=== PATIENT | female | born 1970 | race Caucasian/White ===

== ENCOUNTER 2016-10-21 20:17 | Emergency (ER) | payer OTHER ==
[2016-10-21 20:55] LABS: BASO % 0.4 % (0.0-1.0); EOS # 0.1 K/mm3 (0.0-0.50); EOS % 1.8 % (0.0-3.0); LARGE UNSTAINED CELL # 0.1 K/mm3 (0.0-0.4); LARGE UNSTAINED CELL % 1.9 % (0.0-4.0); LYMPH # 1.6 K/mm3 (1.5-4.5); LYMPH % 24.7 % (24.0-44.0); MEAN CORPUSCULAR HEMOGLOBIN 30.5 pg (27.0-33.0); MEAN CORPUSCULAR HGB CONC 33.6 g/dl (32.0-36.5); MEAN CORPUSCULAR VOLUME 90.9 fl (80.0-96.0); MONO # 0.4 K/mm3 (0.0-0.8); MONO % 5.3 % (0.0-5.0); NEUTROPHILS # 4.3 K/mm3 (1.8-7.7); NEUTROPHILS % 65.9 % (36.0-66.0); PLATELET COUNT, AUTOMATED 185 k/mm3 (150-450); RED CELL DISTRIBUTION WIDTH 12.8 % (11.5-14.5); WHITE BLOOD COUNT 6.5 K/mm3 (4.0-10.0)
[2016-10-21] MEDS ORDERED: IPRATROPIUM 0.5MG/ALBUTEROL 2.5MG INH SOL UD 3ML (DUONEB)(J7620) As Ordered ONE (20:59)
[2016-10-21 21:05] LABS: VENOUS BASE EXCESS -0.8 (-2.0-2.0); VENOUS O2 SATURATION 80.2 % (60.0-80.0); VENOUS PARTIAL PRESSURE CO2 39.8 mmHg (38.0-50.0); VENOUS PARTIAL PRESSURE O2 40.8 mmHg (30.0-50.0); VENOUS STANDARD HCO3 23.4 MEQ/L; VENOUS TOTAL CO2 25.2 MEQ/L (24.0-28.0)
[2016-10-21 21:10] LABS: ANION GAP 8 MEQ/L (8-16); BLOOD UREA NITROGEN 7 MG/DL (7-18); CALCIUM LEVEL 8.6 MG/DL (8.5-10.1); CARBON DIOXIDE LEVEL 25 MEQ/L (21-32); CHLORIDE LEVEL 109 MEQ/L (98-107); CREATININE FOR GFR 0.67 MG/DL (0.55-1.02); GLOMERULAR FILTRATION RATE > 60.0 (>58); GLUCOSE, FASTING 80 MG/DL (70-105); POTASSIUM SERUM 3.4 MEQ/L (3.5-5.1); SODIUM LEVEL 142 MEQ/L (136-145)
--- NOTE | 2016-10-21 23:47 | EDDOCDS ---
Nurse's Notes [facility] Name: Rajwinder Chambers Age: 46 yrs Sex: Female : 1970 Arrival Date: 10/21/2016 Time: 20:17 Bed 1 Private MD: [facility] Diagnosis: Chronic obstructive pulmonary disease with (acute) exacerbation Presentation: 10/21 20:27 Presenting complaint: Patient states: chest pain since last weekend saw her own cz provider who put her on antibiotic and steroid for her chronic COPD. Aspirin was not taken prior to arrival. Adult Sepsis Screening: The patient does not have new or worsening altered mentation. Patient's respiratory rate is less than 22. Systolic blood pressure is greater than 100. Patient has a qSOFA score of 0- Negative Sepsis Screen. Suicide/Homicide risk assessment- the patient denies having any suicidal and/or homicidal ideations and does not present with any other emotional, behavioral or mental health complaints. Status: Patient is not a manager of creative services or dependent. Transition of care: patient was not received from another setting of care. 20:27 Acuity: MIRA Level 2 cz 20:27 Method Of Arrival: Walkin/Carried/Asstd cz Triage Assessment: 20:29 General: Appears uncomfortable. Pain: Location: chest Pain currently is 2 out of 10 on cz a pain scale. HIV screening NA for this visit Offered previously. 23:45 Cardiovascular: Chest pain is described as mild, radiates Does not radiate. episodes js15 are intermittent began. Historical: - Allergies: SULFA (SULFONAMIDES); - Home Meds: 1. Asmanex HFA 200 mcg/actuation inhalation HFAA 2 puffs 2 times per day 2. Breo Ellipta 200-25 mcg/dose inhalation dsdv 1 puff once daily 3. Striverdi Respimat 2.5 mcg/actuation inhalation mist 2 puffs once daily 4. Ventolin Rotahaler/Rotacaps 200 mcg Inhl CpDv every 6 hours 5. Augmentin 875-125 mg Oral tab every 12 hours 6. Prednisone Oral - PMHx: COPD; - PSHx: none; - Social history: Smoking status: Patient uses tobacco products, heavy tobacco smoker. No barriers to communication noted, The patient speaks fluent Comoran, Speaks appropriately for age. - Family history: Not pertinent. - : The pt / caregiver states he / she is not on anticoagulants. Home medication list is obtained from the patient. - Exposure Risk Screening:: None identified. Screenin:00 Screening information is obtained from the patient. Fall risk: No risks identified. js15 Assistance ADL's: requires no assistance with activities of daily living. Abuse/DV Screen: The patient / caregiver reports he/she is: not in a situation that causes fear, pain or injury. Nutritional screening: No deficits noted. Advance Directives: There is no active DNR order. home support is adequate. Assessment: 20:57 General: pt ambulated to bathroom, tolerated well. mlc 21:00 General: Appears in no apparent distress, comfortable, Behavior is appropriate for age, js15 cooperative. Pain: Denies pain. Neurological: Level of Consciousness is awake, alert, obeys commands, Oriented to person, place, time. Cardiovascular: Rhythm is regular. Respiratory: Airway is patent Respiratory effort is even, unlabored, Respiratory pattern is regular, symmetrical. Respiratory: Breath sounds are clear bilaterally. Derm: Skin is pink, warm & dry. 22:00 Reassessment: Patient appears in no apparent distress at this time. Pt resting on js15 stretcher, awake and alert; respirations even and unlabored; skin pink, warm, dry. 23:00 Reassessment: Patient appears in no apparent distress at this time. Patient denies pain js15 at this time. Pt resting on stretcher, awake and alert with family at bedside; respirations even and unlabored; skin pink, warm, dry. 23:44 General: Appears in no apparent distress, comfortable, Behavior is appropriate for age, js15 cooperative. Pain: Denies pain. Neurological: Level of Consciousness is awake, alert, obeys commands, Oriented to person, place, time. Respiratory: Airway is patent Respiratory effort is even, unlabored, Respiratory pattern is regular, symmetrical. Derm: Skin is pink, warm & dry. Vital Signs: 20:20 BP 104 / 72; Pulse 79; Resp 18 S; Temp 98.8(O); Pulse Ox 100% on R/A; Weight 44 kg (R); gr2 Height 5 ft. 6 in. (167.64 cm) (R); Pain 3/10; 23:41 BP 116 / 56 LA Sitting (auto/reg); Pulse 70 MON; Resp 18 S; Temp 99.6(TE); Pulse Ox 96% cln on R/A; Pain 4/10; 20:20 Body Mass Index 15.66 (44.00 kg, 167.64 cm) gr2 Vitals: 20:20 Log In Time: October 21, 2016 at 20:20. RN notified that patient meets Red Flag gr2 criteria. ED Course: 20:20 Patient visited by Rodney Culver. gr2 20:20 [facility] is Private Physician. gr2 20:20 Patient moved to Waiting gr2 20:23 Patient visited by Rodney Culver. gr2 20:23 Patient moved to Pre RCE gr2 20:27 Patient moved to 1 cz 20:28 Triage Initiated cz 20:32 Patient visited by Svitlana Srivastava PCA. sparkle 20:32 Pt greeted and oriented to ED. Patient advised of names of staff involved in care, sparkle location of call sam, wait times and NPO status. Patient has correct armband on for positive identification. Placed in gown. Bed in low position. Call light in reach. Side rails up X2. phototypesetting equipment monitor on. Pulse ox on. NIBP on. 20:32 EKG done. (by ED staff). Reviewed by Peter Eden DO. sparkle 20:33 Peter Eden DO is Attending Physician. mm11 20:33 Patient visited by Peter Eden DO. mm11 20:41 Patient visited by Lanie Amezcua RN. [facility] [place] 20:41 Inserted saline lock: 18 gauge in right antecubital area and blood collected. The [facility] [place] patient tolerated the procedure well. 20:43 Patient visited by Peter Eden DO. mm11 20:45 -Blood Culture Sent. mlc 20:45 Basic Metabolic Profile Sent. mlc 20:45 CBC with Diff Sent. mlc 20:55 BLOOD CULTURES Sent. mlc 20:55 Venous Blood Gas (large pea green tube on ice) Sent. mlc 20:57 Patient visited by Lanie Amezcua,SUGAR. mlc 21:59 Patient visited by Manuela Rader RN. js15 21:59 -Influenza A&B Rapid Antigen - Nose Sent. js15 22:00 The patient / caregiver is instructed regarding the plan of care and ED course. js15 23:13 Patient visited by Peter Eden DO. mm11 23:32 [facility] is Referral Physician. mm11 23:42 Patient visited by Vanessa Mireles PCA. cln 23:44 Discontinued IV lock intact, bleeding controlled, pressure dressing applied, No js15 redness/swelling at site. No procedures done that require assistance. Administered Medications: 20:56 Drug: Albuterol-Ipratropium 3 ml [ipratropium-albuterol 0.5 mg-3 mg(2.5 mg base)/3 mL rs5 nebulization soln (3 mL)] Route: Inhalation; 21:59 Drug: NS 0.9% 1000 ml [sodium chloride 0.9 % intravenous solution] Route: IV; Rate: js15 bolus; Site: right antecubital; 23:42 Follow up: IV Status: Completed infusion; IV Intake: 1000ml js15 Intake: 23:42 IV: 1000.00ml; Total: 1000.00ml. js15 RT: 21:04 Initial Med Neb Given as ordered Patient was instructed and evaluated on procedure rs5 Patient tolerated procedure well without adverse effect. Respiratory: Respiratory effort is even, unlabored, Respiratory pattern is regular symmetrical, Breath sounds are diminished bilaterally. Reports shortness of breath on exertion cough that is productive. Order Results: Lab Order: Basic Metabolic Profile; SPEC'M 10/21/16 20:37 Test: GLUCOSE, FASTING; Value: 80; Range: 70-105; Units: MG/DL; Status: F Test: BLOOD UREA NITROGEN; Value: 7; Range: 7-18; Units: MG/DL; Status: F Test: CREATININE FOR GFR; Value: 0.67; Range: 0.55-1.02; Units: MG/DL; Status: F Test: GLOMERULAR FILTRATION RATE; Value: > 60.0; Range: >58; Status: F Test: SODIUM LEVEL; Value: 142; Range: 136-145; Units: MEQ/L; Status: F Test: POTASSIUM SERUM; Value: 3.4; Range: 3.5-5.1; Abnormal: Below low normal; Units: MEQ/L; Status: F Test: CHLORIDE LEVEL; Value: 109; Range: 98-107; Abnormal: Above high normal; Units: MEQ/L; Status: F Test: CARBON DIOXIDE LEVEL; Value: 25; Range: 21-32; Units: MEQ/L; Status: F Test: ANION GAP; Value: 8; Range: 8-16; Units: MEQ/L; Status: F Test: CALCIUM LEVEL; Value: 8.6; Range: 8.5-10.1; Units: MG/DL; Status: F Test Note: ; Units are mL/min/1.73 m2 Chronic Kidney Disease Staging per NKF: Stage I & II GFR >=60 Normal to Mildly Decreased Stage III GFR 30-59 Moderately Decreased Stage IV GFR 15-29 Severely Decreased Stage V GFR <15 Very Little GFR Left ESRD GFR <15 on GLOVE PARTS INSPECTOR Lab Order: CBC with Diff; SPEC'M 10/21/16 20:37 Test: WHITE BLOOD COUNT; Value: 6.5; Range: 4.0-10.0; Units: K/mm3; Status: F Test: RED BLOOD COUNT; Value: 4.70; Range: 4.00-5.40; Units: M/mm3; Status: F Test: HEMOGLOBIN; Value: 14.3; Range: 12.0-16.0; Units: g/dl; Status: F Test: HEMATOCRIT; Value: 42.7; Range: 36.0-47.0; Units: %; Status: F Test: MEAN CORPUSCULAR VOLUME; Value: 90.9; Range: 80.0-96.0; Units: fl; Status: F Test: MEAN CORPUSCULAR HEMOGLOBIN; Value: 30.5; Range: 27.0-33.0; Units: pg; Status: F Test: MEAN CORPUSCULAR HGB CONC; Value: 33.6; Range: 32.0-36.5; Units: g/dl; Status: F Test: RED CELL DISTRIBUTION WIDTH; Value: 12.8; Range: 11.5-14.5; Units: %; Status: F Test: PLATELET COUNT, AUTOMATED; Value: 185; Range: 150-450; Units: k/mm3; Status: F Test: NEUTROPHILS %; Value: 65.9; Range: 36.0-66.0; Units: %; Status: F Test: LYMPH %; Value: 24.7; Range: 24.0-44.0; Units: %; Status: F Test: MONO %; Value: 5.3; Range: 0.0-5.0; Abnormal: Above high normal; Units: %; Status: F Test: EOS %; Value: 1.8; Range: 0.0-3.0; Units: %; Status: F Test: BASO %; Value: 0.4; Range: 0.0-1.0; Units: %; Status: F Test: LARGE UNSTAINED CELL %; Value: 1.9; Range: 0.0-4.0; Units: %; Status: F Test: NEUTROPHILS #; Value: 4.3; Range: 1.8-7.7; Units: K/mm3; Status: F Test: LYMPH #; Value: 1.6; Range: 1.5-4.5; Units: K/mm3; Status: F Test: MONO #; Value: 0.4; Range: 0.0-0.8; Units: K/mm3; Status: F Test: EOS #; Value: 0.1; Range: 0.0-0.50; Units: K/mm3; Status: F Test: BASO #; Value: 0.0; Range: 0.0-0.2; Units: K/mm3; Status: F Test: LARGE UNSTAINED CELL #; Value: 0.1; Range: 0.0-0.4; Units: K/mm3; Status: F Lab Order: Venous Blood Gas (large pea green tube on ice); SPEC'M 10/21/16 20:52 Test: VENOUS PH; Value: 7.397; Range: 7.330-7.430; Units: UNITS; Status: F Test: VENOUS PARTIAL PRESSURE CO2; Value: 39.8; Range: 38.0-50.0; Units: mmHg; Status: F Test: VENOUS PARTIAL PRESSURE O2; Value: 40.8; Range: 30.0-50.0; Units: mmHg; Status: F Test: VENOUS TOTAL CO2; Value: 25.2; Range: 24.0-28.0; Units: MEQ/L; Status: F Test: VENOUS HCO3; Value: 23.9; Range: 23.0-27.0; Units: MEQ/L; Status: F Test: VENOUS BASE EXCESS; Value: -0.8; Range: -2.0-2.0; Status: F Test: VENOUS STANDARD HCO3; Value: 23.4; Units: MEQ/L; Status: F Test: VENOUS O2 SATURATION; Value: 80.2; Range: 60.0-80.0; Abnormal: Above high normal; Units: %; Status: F Lab Order: -Influenza A&B Rapid Antigen - Nose; SPEC'M 10/21/16 21:56 Test: INFLUENZA A RAPID SCR by ICA; Value: INFLUENZA A RESULTS NEGATIVE; Status: F Test: INFLUENZA A RAPID SCR by ICA; Value: Comments:; Status: F Test: INFLUENZA B RAPID SCR by ICA; Value: INFLUENZA B RESULTS NEGATIVE; Status: F Test Note: ; The Influenza test is a direct rapid immunoassay for the qualitative detection of Influenza viral antigen. Cell culture (Viral Culture) testing should be considered to confirm NEGATIVE results and to assist in detecting other viruses that can provide similar clinical symptoms. Please contact the lab within 24 hours ([phone]) if confirmatory testing is desired. Outcome: 23:33 Discharge ordered by Provider. mm11 23:44 Discharge Assessment: Patient awake, alert and oriented x 3. No cognitive and/or js15 functional deficits noted. Patient verbalized understanding of disposition instructions. patient administered narcotics - no. The following High Risk Discharge criteria are identified: None. Discharged to home ambulatory. Condition: stable. Discharge instructions given to patient, Instructed on discharge instructions, follow up and referral plans. Demonstrated understanding of instructions, Pt was receptive of discharge instructions/ teaching. No special radiology studies were completed. Property sent home with patient. 23:46 Patient left the ED. js15 Signatures: Navneet Hackett, RN RN Peter Hernandez DO DO mm11 Svitlana Srivastava, SPECIAL EDUCATION CASE MANAGER SPECIAL EDUCATION CASE MANAGER sparkle Ignacio Coates,RT RT rs5 Rodney Culver gr2 Lanie Amezcua,RN RN mlc Manuela Rader,SUGAR WOOTEN js15 Vanessa Mireles, SPECIAL EDUCATION CASE MANAGER SPECIAL EDUCATION CASE MANAGER cln MTDD
--- NOTE | 2016-10-21 23:47 | EDDOCDS ---
Physician Documentation [facility] Name: Rajwinder Chambers Age: 46 yrs Sex: Female : 1970 Arrival Date: 10/21/2016 Time: 20:17 Bed 1 Private MD: [facility] Disposition: 10/21/16 23:33 Discharged to Home/Self Care. Impression: Chronic obstructive pulmonary disease with (acute) exacerbation. - Condition is Stable. - Discharge Instructions: Chronic Obstructive Pulmonary Disease. - Medication Reconciliation, Local Pharmacy Hours, Work Release Form - 2 day form. - Follow up: [facility]; When: 2 - 3 days; Reason: Continuance of care. - Problem is an acute exacerbation. - Symptoms have improved. - Notes: CONTINUE WITH ANTIBIOTICS AND STEROIDS PREVIOUSLY PRESCRIBED. RETURN TO THE ER IF SYMPTOMS WORSEN. Historical: - Allergies: SULFA (SULFONAMIDES); - Home Meds: 1. Asmanex HFA 200 mcg/actuation inhalation HFAA 2 puffs 2 times per day 2. Breo Ellipta 200-25 mcg/dose inhalation dsdv 1 puff once daily 3. Striverdi Respimat 2.5 mcg/actuation inhalation mist 2 puffs once daily 4. Ventolin Rotahaler/Rotacaps 200 mcg Inhl CpDv every 6 hours 5. Augmentin 875-125 mg Oral tab every 12 hours 6. Prednisone Oral - PMHx: COPD; - PSHx: none; - Social history: Smoking status: Patient uses tobacco products, heavy tobacco smoker. No barriers to communication noted, The patient speaks fluent Slovenian, Speaks appropriately for age. - Family history: Not pertinent. - : The pt / caregiver states he / she is not on anticoagulants. Home medication list is obtained from the patient. - Exposure Risk Screening:: None identified. Vital Signs: 10/21 20:20 BP 104 / 72; Pulse 79; Resp 18 S; Temp 98.8(O); Pulse Ox 100% on R/A; Weight 44 kg / 97 gr2 lbs (R); Height 5 ft. 6 in. (167.64 cm) (R); Pain 3/10; 23:41 BP 116 / 56 LA Sitting (auto/reg); Pulse 70 MON; Resp 18 S; Temp 99.6(TE); Pulse Ox 96% cln on R/A; Pain 4/10; 20:20 Body Mass Index 15.66 (44.00 kg, 167.64 cm) gr2 MDM: 20:29 ECG WITH READING ER PHYS+CARDIAG ordered. EDMS 20:44 -Blood Culture (Adults Only), peripheral from different site, or from device/port/PICC mm11 etc. if present ordered. 20:44 Hotel Yardperson/Pulse Ox/q 15 min VS ordered. mm11 20:44 IV Saline Lock ordered. mm11 20:44 Rhythm Strip to chart ordered. mm11 20:44 Albuterol-Ipratropium 3 ml Inhalation once ordered. mm11 20:44 Call Respiratory ordered. mm11 20:45 -Blood Culture Ordered. EDMS 20:45 Basic Metabolic Profile Ordered. EDMS 20:45 CBC with Diff Ordered. EDMS 20:45 Venous Blood Gas (large pea green tube on ice) Ordered. EDMS 20:46 Chest, 2 View (pa\E\lat) Ordered. EDMS 20:49 Call Respiratory complete. mdr 20:53 -Blood Culture (Adults Only), peripheral from different site, or from device/port/PICC mdr etc. if present complete. 20:54 BLOOD CULTURES Ordered. EDMS 21:53 Basic Metabolic Profile Reviewed. mm11 21:53 CBC with Diff Reviewed. mm11 21:53 Venous Blood Gas (large pea green tube on ice) Reviewed. mm11 21:53 NS 0.9% 1000 ml IV at bolus once ordered. mm11 21:55 -Influenza A&B Rapid Antigen - Nose Ordered. EDMS 23:13 -Influenza A&B Rapid Antigen - Nose Reviewed. mm11 23:42 Financial registration complete. hs2 Administered Medications: 20:56 Drug: Albuterol-Ipratropium 3 ml [ipratropium-albuterol 0.5 mg-3 mg(2.5 mg base)/3 mL rs5 nebulization soln (3 mL)] Route: Inhalation; 21:59 Drug: NS 0.9% 1000 ml [sodium chloride 0.9 % intravenous solution] Route: IV; Rate: js15 bolus; Site: right antecubital; 23:42 Follow up: IV Status: Completed infusion; IV Intake: 1000ml js15 Signatures: Dispatcher [employer] EDMS Navneet Hackett RN RN Peter Hernandez DO DO mm11 Manuela Rader,RN RN js15 Júnior Sanders, FUND DIRECTOR FUND DIRECTOR mdr Marcy Johnston, Reg Reg hs2 Ignacio Coates RT rs5 MTDD
--- NOTE | 2016-10-22 01:17 | REP ---
Clinical: Acute cough . Comparison: 09/17/2016 . Technique: PA and lateral. Findings: The mediastinum and cardiac silhouette are normal. The lung munoz demonstrate chronic changes and without acute consolidation, effusion, or pneumothorax. The skeletal structures are intact and normal. Impression: 1. No acute cardiopulmonary process. Signed by Juan Antonio Harvey MD 10/22/2016 01:09 A
--- NOTE | 2016-10-22 20:45 | ECGEPIP ---
Stationary ECG Study [facility] - ED Test Date: 2016-10-21 Pat Name: YENI REYEZ Department: Room: - Gender: F Ada Accommodation Consultant: bayron : 1970 Requested By: HAYDEN Landon Order Number: [id number] Reading MD: Nancy Perea Measurements Intervals [place] Rate: 57 P: 84 MS: 136 QRS: 33 QRSD: 93 T: 69 QT: 379 QTc: 369 Interpretive Statements SINUS BRADYCARDIA WITH OCCASIONAL ECTOPIC PREMATURE COMPLEXES POSSIBLE RIGHT VENTRICULAR CONDUCTION DELAY SIMILAR 09/17/16 Electronically Signed On 10-22-2016 20:45:24 EST by Nancy Perea
--- NOTE | 2016-10-24 00:47 | EDDOCDS ---
Physician Documentation [facility] Name: Rajwinder Chambers Age: 46 yrs Sex: Female : 1970 Arrival Date: 10/21/2016 Time: 20:17 Bed 1 Private MD: [facility] Disposition: 10/21/16 23:33 Discharged to Home/Self Care. Impression: Chronic obstructive pulmonary disease with (acute) exacerbation. - Condition is Stable. - Discharge Instructions: Chronic Obstructive Pulmonary Disease. - Medication Reconciliation, Local Pharmacy Hours, Work Release Form - 2 day form. - Follow up: [facility]; When: 2 - 3 days; Reason: Continuance of care. - Problem is an acute exacerbation. - Symptoms have improved. - Notes: CONTINUE WITH ANTIBIOTICS AND STEROIDS PREVIOUSLY PRESCRIBED. RETURN TO THE ER IF SYMPTOMS WORSEN. Historical: - Allergies: SULFA (SULFONAMIDES); - Home Meds: 1. Asmanex HFA 200 mcg/actuation inhalation HFAA 2 puffs 2 times per day 2. Breo Ellipta 200-25 mcg/dose inhalation dsdv 1 puff once daily 3. Striverdi Respimat 2.5 mcg/actuation inhalation mist 2 puffs once daily 4. Ventolin Rotahaler/Rotacaps 200 mcg Inhl CpDv every 6 hours 5. Augmentin 875-125 mg Oral tab every 12 hours 6. Prednisone Oral - PMHx: COPD; - PSHx: none; - Social history: Smoking status: Patient uses tobacco products, heavy tobacco smoker. No barriers to communication noted, The patient speaks fluent Malay, Speaks appropriately for age. - Family history: Not pertinent. - : The pt / caregiver states he / she is not on anticoagulants. Home medication list is obtained from the patient. - Exposure Risk Screening:: None identified. Vital Signs: 10/21 20:20 BP 104 / 72; Pulse 79; Resp 18 S; Temp 98.8(O); Pulse Ox 100% on R/A; Weight 44 kg / 97 gr2 lbs (R); Height 5 ft. 6 in. (167.64 cm) (R); Pain 3/10; 23:41 BP 116 / 56 LA Sitting (auto/reg); Pulse 70 MON; Resp 18 S; Temp 99.6(TE); Pulse Ox 96% cln on R/A; Pain 4/10; 20:20 Body Mass Index 15.66 (44.00 kg, 167.64 cm) gr2 MDM: 20:29 ECG WITH READING ER PHYS+CARDIAG ordered. EDMS 20:44 -Blood Culture (Adults Only), peripheral from different site, or from device/port/PICC mm11 etc. if present ordered. 20:44 Dressed Poultry Grader/Pulse Ox/q 15 min VS ordered. mm11 20:44 IV Saline Lock ordered. mm11 20:44 Rhythm Strip to chart ordered. mm11 20:44 Albuterol-Ipratropium 3 ml Inhalation once ordered. mm11 20:44 Call Respiratory ordered. mm11 20:45 -Blood Culture Ordered. EDMS 20:45 Basic Metabolic Profile Ordered. EDMS 20:45 CBC with Diff Ordered. EDMS 20:45 Venous Blood Gas (large pea green tube on ice) Ordered. EDMS 20:46 Chest, 2 View (pa\E\lat) Ordered. EDMS 20:49 Call Respiratory complete. mdr 20:53 -Blood Culture (Adults Only), peripheral from different site, or from device/port/PICC mdr etc. if present complete. 20:54 BLOOD CULTURES Ordered. EDMS 21:53 Basic Metabolic Profile Reviewed. mm11 21:53 CBC with Diff Reviewed. mm11 21:53 Venous Blood Gas (large pea green tube on ice) Reviewed. mm11 21:53 NS 0.9% 1000 ml IV at bolus once ordered. mm11 21:55 -Influenza A&B Rapid Antigen - Nose Ordered. EDMS 23:13 -Influenza A&B Rapid Antigen - Nose Reviewed. mm11 23:42 Financial registration complete. hs2 10/22 01:15 [facility] Payment Agreement was scanned into [employer] and attached to record. hs2 11:22 T-Sheet-- Draft Copy was scanned into [employer] and attached to record. gb 11:22 ECG/EKG was scanned into [employer] and attached to record. gb 11:23 Trend VS was scanned into [employer] and attached to record. gb Administered Medications: 10/21 20:56 Drug: Albuterol-Ipratropium 3 ml [ipratropium-albuterol 0.5 mg-3 mg(2.5 mg base)/3 mL rs5 nebulization soln (3 mL)] Route: Inhalation; 21:59 Drug: NS 0.9% 1000 ml [sodium chloride 0.9 % intravenous solution] Route: IV; Rate: js15 bolus; Site: right antecubital; 23:42 Follow up: IV Status: Completed infusion; IV Intake: 1000ml js15 Signatures: Dispatcher [employer] EDNavneet Dominguez, SUGAR RN cz Naila Peoples, Reg Reg gb Peter Eden, DO mm11 Manuela Rader RN RN js15 Júnior Sanders, SLEEVE IRONER SLEEVE IRONER mdr Marcy Johnston, Reg Reg hs2 Ignacio Coates RT rs5 The chart was reviewed and I authenticate all verbal orders and agree with the evaluation and treatment provided.Attachments: 10/22 01:15 [place] [place] Agreement hs2 11:22 T-Sheet-- Draft Copy gb 11:22 ECG/EKG gb Chart Complete MTDD
--- NOTE | 2016-10-24 00:47 | EDDOCDS ---
Nurse's Notes [facility] Name: Yeni Reyez Age: 46 yrs Sex: Female : 1970 Arrival Date: 10/21/2016 Time: 20:17 Bed 1 Private MD: [facility] Diagnosis: Chronic obstructive pulmonary disease with (acute) exacerbation Presentation: 10/21 20:27 Presenting complaint: Patient states: chest pain since last weekend saw her own cz provider who put her on antibiotic and steroid for her chronic COPD. Aspirin was not taken prior to arrival. Adult Sepsis Screening: The patient does not have new or worsening altered mentation. Patient's respiratory rate is less than 22. Systolic blood pressure is greater than 100. Patient has a qSOFA score of 0- Negative Sepsis Screen. Suicide/Homicide risk assessment- the patient denies having any suicidal and/or homicidal ideations and does not present with any other emotional, behavioral or mental health complaints. Status: Patient is not a branch service associate or dependent. Transition of care: patient was not received from another setting of care. 20:27 Acuity: MIRA Level 2 cz 20:27 Method Of Arrival: Walkin/Carried/Asstd cz Triage Assessment: 20:29 General: Appears uncomfortable. Pain: Location: chest Pain currently is 2 out of 10 on cz a pain scale. HIV screening NA for this visit Offered previously. 23:45 Cardiovascular: Chest pain is described as mild, radiates Does not radiate. episodes js15 are intermittent began. Historical: - Allergies: SULFA (SULFONAMIDES); - Home Meds: 1. Asmanex HFA 200 mcg/actuation inhalation HFAA 2 puffs 2 times per day 2. Breo Ellipta 200-25 mcg/dose inhalation dsdv 1 puff once daily 3. Striverdi Respimat 2.5 mcg/actuation inhalation mist 2 puffs once daily 4. Ventolin Rotahaler/Rotacaps 200 mcg Inhl CpDv every 6 hours 5. Augmentin 875-125 mg Oral tab every 12 hours 6. Prednisone Oral - PMHx: COPD; - PSHx: none; - Social history: Smoking status: Patient uses tobacco products, heavy tobacco smoker. No barriers to communication noted, The patient speaks fluent Paraguayan, Speaks appropriately for age. - Family history: Not pertinent. - : The pt / caregiver states he / she is not on anticoagulants. Home medication list is obtained from the patient. - Exposure Risk Screening:: None identified. Screenin:00 Screening information is obtained from the patient. Fall risk: No risks identified. js15 Assistance ADL's: requires no assistance with activities of daily living. Abuse/DV Screen: The patient / caregiver reports he/she is: not in a situation that causes fear, pain or injury. Nutritional screening: No deficits noted. Advance Directives: There is no active DNR order. home support is adequate. Assessment: 20:57 General: pt ambulated to bathroom, tolerated well. mlc 21:00 General: Appears in no apparent distress, comfortable, Behavior is appropriate for age, js15 cooperative. Pain: Denies pain. Neurological: Level of Consciousness is awake, alert, obeys commands, Oriented to person, place, time. Cardiovascular: Rhythm is regular. Respiratory: Airway is patent Respiratory effort is even, unlabored, Respiratory pattern is regular, symmetrical. Respiratory: Breath sounds are clear bilaterally. Derm: Skin is pink, warm & dry. 22:00 Reassessment: Patient appears in no apparent distress at this time. Pt resting on js15 stretcher, awake and alert; respirations even and unlabored; skin pink, warm, dry. 23:00 Reassessment: Patient appears in no apparent distress at this time. Patient denies pain js15 at this time. Pt resting on stretcher, awake and alert with family at bedside; respirations even and unlabored; skin pink, warm, dry. 23:44 General: Appears in no apparent distress, comfortable, Behavior is appropriate for age, js15 cooperative. Pain: Denies pain. Neurological: Level of Consciousness is awake, alert, obeys commands, Oriented to person, place, time. Respiratory: Airway is patent Respiratory effort is even, unlabored, Respiratory pattern is regular, symmetrical. Derm: Skin is pink, warm & dry. Vital Signs: 20:20 BP 104 / 72; Pulse 79; Resp 18 S; Temp 98.8(O); Pulse Ox 100% on R/A; Weight 44 kg (R); gr2 Height 5 ft. 6 in. (167.64 cm) (R); Pain 3/10; 23:41 BP 116 / 56 LA Sitting (auto/reg); Pulse 70 MON; Resp 18 S; Temp 99.6(TE); Pulse Ox 96% cln on R/A; Pain 4/10; 20:20 Body Mass Index 15.66 (44.00 kg, 167.64 cm) gr2 Vitals: 20:20 Log In Time: October 21, 2016 at 20:20. RN notified that patient meets Red Flag gr2 criteria. ED Course: 20:20 Patient visited by Rodney Culver. gr2 20:20 [facility] is Private Physician. gr2 20:20 Patient moved to Waiting gr2 20:23 Patient visited by Rodney Culver. gr2 20:23 Patient moved to Pre RCE gr2 20:27 Patient moved to 1 cz 20:28 Triage Initiated cz 20:32 Patient visited by Svitlana Srivastava PCA. sparkle 20:32 Pt greeted and oriented to ED. Patient advised of names of staff involved in care, sparkle location of call sam, wait times and NPO status. Patient has correct armband on for positive identification. Placed in gown. Bed in low position. Call light in reach. Side rails up X2. tube fitter on. Pulse ox on. NIBP on. 20:32 EKG done. (by ED staff). Reviewed by Hayden Eden DO. sparkle 20:33 Hayden Eden DO is Attending Physician. mm11 20:33 Patient visited by Hayden Eden DO. mm11 20:41 Patient visited by Lanie Amezcua RN. [facility] [place] 20:41 Inserted saline lock: 18 gauge in right antecubital area and blood collected. The [facility] [place] patient tolerated the procedure well. 20:43 Patient visited by Hayden Eden DO. mm11 20:45 -Blood Culture Sent. mlc 20:45 Basic Metabolic Profile Sent. mlc 20:45 CBC with Diff Sent. mlc 20:55 BLOOD CULTURES Sent. mlc 20:55 Venous Blood Gas (large pea green tube on ice) Sent. mlc 20:57 Patient visited by Lanie Amezcua,SUGAR. mlc 21:59 Patient visited by Manuela Rader RN. js15 21:59 -Influenza A&B Rapid Antigen - Nose Sent. js15 22:00 The patient / caregiver is instructed regarding the plan of care and ED course. js15 23:13 Patient visited by Hayden Eden DO. mm11 23:32 [facility] is Referral Physician. mm11 23:42 Patient visited by Vanessa Mireles PCA. cln 23:44 Discontinued IV lock intact, bleeding controlled, pressure dressing applied, No js15 redness/swelling at site. No procedures done that require assistance. 10/22 01:15 [facility] [place] Payment Agreement was scanned into wikifolioST and attached to record. hs2 01:20 Chest, 2 View (pa\E\lat) Returned. EDMS 11:22 T-Sheet-- Draft Copy was scanned into PeerflixHOST and attached to record. gb 11:22 ECG/EKG was scanned into MEDHOST and attached to record. gb 11:23 Trend VS was scanned into MEDHOST and attached to record. gb 21:23 EKG-ADULT Returned. EDMS Administered Medications: 10/21 20:56 Drug: Albuterol-Ipratropium 3 ml [ipratropium-albuterol 0.5 mg-3 mg(2.5 mg base)/3 mL rs5 nebulization soln (3 mL)] Route: Inhalation; 21:59 Drug: NS 0.9% 1000 ml [sodium chloride 0.9 % intravenous solution] Route: IV; Rate: js15 bolus; Site: right antecubital; 23:42 Follow up: IV Status: Completed infusion; IV Intake: 1000ml js15 Attachments: 11:23 Trend VS gb Intake: 10/21 23:42 IV: 1000.00ml; Total: 1000.00ml. js15 RT: 21:04 Initial Med Neb Given as ordered Patient was instructed and evaluated on procedure rs5 Patient tolerated procedure well without adverse effect. Respiratory: Respiratory effort is even, unlabored, Respiratory pattern is regular symmetrical, Breath sounds are diminished bilaterally. Reports shortness of breath on exertion cough that is productive. Order Results: Lab Order: -Blood Culture; SPEC'M 10/21/16 20:37 Test: BLOOD CULTURE; Value: No growth after 24 hours . All specimens observed; Status: F Test: BLOOD CULTURE; Value: for 5 days. Results final at that time.; Status: F Test: BLOOD CULTURE; Value: No Growth after 48 hours. All Specimens observed; Status: F Test: BLOOD CULTURE; Value: for 7 days. Results final at that time.; Status: F Lab Order: Basic Metabolic Profile; SPEC'M 10/21/16 20:37 Test: GLUCOSE, FASTING; Value: 80; Range: 70-105; Units: MG/DL; Status: F Test: BLOOD UREA NITROGEN; Value: 7; Range: 7-18; Units: MG/DL; Status: F Test: CREATININE FOR GFR; Value: 0.67; Range: 0.55-1.02; Units: MG/DL; Status: F Test: GLOMERULAR FILTRATION RATE; Value: > 60.0; Range: >58; Status: F Test: SODIUM LEVEL; Value: 142; Range: 136-145; Units: MEQ/L; Status: F Test: POTASSIUM SERUM; Value: 3.4; Range: 3.5-5.1; Abnormal: Below low normal; Units: MEQ/L; Status: F Test: CHLORIDE LEVEL; Value: 109; Range: 98-107; Abnormal: Above high normal; Units: MEQ/L; Status: F Test: CARBON DIOXIDE LEVEL; Value: 25; Range: 21-32; Units: MEQ/L; Status: F Test: ANION GAP; Value: 8; Range: 8-16; Units: MEQ/L; Status: F Test: CALCIUM LEVEL; Value: 8.6; Range: 8.5-10.1; Units: MG/DL; Status: F Test Note: ; Units are mL/min/1.73 m2 Chronic Kidney Disease Staging per NKF: Stage I & II GFR >=60 Normal to Mildly Decreased Stage III GFR 30-59 Moderately Decreased Stage IV GFR 15-29 Severely Decreased Stage V GFR <15 Very Little GFR Left ESRD GFR <15 on SUPERVISOR DRILLING AND SHOOTING Lab Order: CBC with Diff; SPEC'M 10/21/16 20:37 Test: WHITE BLOOD COUNT; Value: 6.5; Range: 4.0-10.0; Units: K/mm3; Status: F Test: RED BLOOD COUNT; Value: 4.70; Range: 4.00-5.40; Units: M/mm3; Status: F Test: HEMOGLOBIN; Value: 14.3; Range: 12.0-16.0; Units: g/dl; Status: F Test: HEMATOCRIT; Value: 42.7; Range: 36.0-47.0; Units: %; Status: F Test: MEAN CORPUSCULAR VOLUME; Value: 90.9; Range: 80.0-96.0; Units: fl; Status: F Test: MEAN CORPUSCULAR HEMOGLOBIN; Value: 30.5; Range: 27.0-33.0; Units: pg; Status: F Test: MEAN CORPUSCULAR HGB CONC; Value: 33.6; Range: 32.0-36.5; Units: g/dl; Status: F Test: RED CELL DISTRIBUTION WIDTH; Value: 12.8; Range: 11.5-14.5; Units: %; Status: F Test: PLATELET COUNT, AUTOMATED; Value: 185; Range: 150-450; Units: k/mm3; Status: F Test: NEUTROPHILS %; Value: 65.9; Range: 36.0-66.0; Units: %; Status: F Test: LYMPH %; Value: 24.7; Range: 24.0-44.0; Units: %; Status: F Test: MONO %; Value: 5.3; Range: 0.0-5.0; Abnormal: Above high normal; Units: %; Status: F Test: EOS %; Value: 1.8; Range: 0.0-3.0; Units: %; Status: F Test: BASO %; Value: 0.4; Range: 0.0-1.0; Units: %; Status: F Test: LARGE UNSTAINED CELL %; Value: 1.9; Range: 0.0-4.0; Units: %; Status: F Test: NEUTROPHILS #; Value: 4.3; Range: 1.8-7.7; Units: K/mm3; Status: F Test: LYMPH #; Value: 1.6; Range: 1.5-4.5; Units: K/mm3; Status: F Test: MONO #; Value: 0.4; Range: 0.0-0.8; Units: K/mm3; Status: F Test: EOS #; Value: 0.1; Range: 0.0-0.50; Units: K/mm3; Status: F Test: BASO #; Value: 0.0; Range: 0.0-0.2; Units: K/mm3; Status: F Test: LARGE UNSTAINED CELL #; Value: 0.1; Range: 0.0-0.4; Units: K/mm3; Status: F Lab Order: Venous Blood Gas (large pea green tube on ice); SPEC'M 10/21/16 20:52 Test: VENOUS PH; Value: 7.397; Range: 7.330-7.430; Units: UNITS; Status: F Test: VENOUS PARTIAL PRESSURE CO2; Value: 39.8; Range: 38.0-50.0; Units: mmHg; Status: F Test: VENOUS PARTIAL PRESSURE O2; Value: 40.8; Range: 30.0-50.0; Units: mmHg; Status: F Test: VENOUS TOTAL CO2; Value: 25.2; Range: 24.0-28.0; Units: MEQ/L; Status: F Test: VENOUS HCO3; Value: 23.9; Range: 23.0-27.0; Units: MEQ/L; Status: F Test: VENOUS BASE EXCESS; Value: -0.8; Range: -2.0-2.0; Status: F Test: VENOUS STANDARD HCO3; Value: 23.4; Units: MEQ/L; Status: F Test: VENOUS O2 SATURATION; Value: 80.2; Range: 60.0-80.0; Abnormal: Above high normal; Units: %; Status: F Lab Order: BLOOD CULTURES; SPEC'M 10/21/16 20:52 Test: BLOOD CULTURE; Value: No growth after 24 hours . All specimens observed; Status: F Test: BLOOD CULTURE; Value: for 5 days. Results final at that time.; Status: F Test: BLOOD CULTURE; Value: No Growth after 48 hours. All Specimens observed; Status: F Test: BLOOD CULTURE; Value: for 7 days. Results final at that time.; Status: F Lab Order: -Influenza A&B Rapid Antigen - Nose; SPEC'M 10/21/16 21:56 Test: INFLUENZA A RAPID SCR by ICA; Value: INFLUENZA A RESULTS NEGATIVE; Status: F Test: INFLUENZA A RAPID SCR by ICA; Value: Comments:; Status: F Test: INFLUENZA B RAPID SCR by ICA; Value: INFLUENZA B RESULTS NEGATIVE; Status: F Test Note: ; The Influenza test is a direct rapid immunoassay for the qualitative detection of Influenza viral antigen. Cell culture (Viral Culture) testing should be considered to confirm NEGATIVE results and to assist in detecting other viruses that can provide similar clinical symptoms. Please contact the lab within 24 hours ([phone]) if confirmatory testing is desired. 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; : 1970 Requested By: HAYDEN Landon; Order Number: [id number] Reading MD: Nancy Perea; Measurements; Intervals [place]; Rate: 57 P: 84; WI: 136 QRS: 33; QRSD: 93 T: 69; QT: 379; QTc: 369; Interpretive Statements; SINUS BRADYCARDIA WITH OCCASIONAL ECTOPIC PREMATURE COMPLEXES; POSSIBLE RIGHT VENTRICULAR CONDUCTION DELAY; SIMILAR 09/17/16; Electronically Signed On 10-22-2016 20:45:24 EST by Nancy Perea; Radiology Order: Chest, 2 View (pa\E\lat) Test: Chest, 2 View (pa\E\lat) REASON FOR EXAMINATION: Cough; Clinical: Acute cough .; ; Comparison: 09/17/2016 .; ; Technique: PA and lateral.; ; Findings:; The mediastinum and cardiac silhouette are normal. The lung munoz demonstrate; chronic changes and without acute consolidation, effusion, or pneumothorax. The; skeletal structures are intact and normal.; ; Impression:; 1. No acute cardiopulmonary process.; ; ; Signed by; Juan Antonio Harvey MD 10/22/2016 01:09 A; Outcome: 23:33 Discharge ordered by Provider. mm11 23:44 Discharge Assessment: Patient awake, alert and oriented x 3. No cognitive and/or js15 functional deficits noted. Patient verbalized understanding of disposition instructions. patient administered narcotics - no. The following High Risk Discharge criteria are identified: None. Discharged to home ambulatory. Condition: stable. Discharge instructions given to patient, Instructed on discharge instructions, follow up and referral plans. Demonstrated understanding of instructions, Pt was receptive of discharge instructions/ teaching. No special radiology studies were completed. Property sent home with patient. 23:46 Patient left the ED. js15 Signatures: Dispatcher MedHost EDNavneet Dominguez RN RN Naila Anand, Reg Reg gb Hayden Eden, DO DO mm11 Atif, Svitlana, SUPERVISOR ELECTROLYTIC TINNING SUPERVISOR ELECTROLYTIC TINNING sparkle Jaxon,Ignacio,RT RT rs5 Rodney Culver gr2 Lanie Amezcua,RN RN mlc Manuela Rader,RN RN js15 Marcy Johnston, Reg Reg hs2 Aline, Crystal, SUPERVISOR ELECTROLYTIC TINNING SUPERVISOR ELECTROLYTIC TINNING cln Chart Complete MTDD
--- NOTE | 2016-10-24 00:47 | EDDOCDS ---
Physician Documentation [facility] Name: Rajwinder Chambers Age: 46 yrs Sex: Female : 1970 Arrival Date: 10/21/2016 Time: 20:17 Bed 1 Private MD: [facility] Disposition: 10/21/16 23:33 Discharged to Home/Self Care. Impression: Chronic obstructive pulmonary disease with (acute) exacerbation. - Condition is Stable. - Discharge Instructions: Chronic Obstructive Pulmonary Disease. - Medication Reconciliation, Local Pharmacy Hours, Work Release Form - 2 day form. - Follow up: [facility]; When: 2 - 3 days; Reason: Continuance of care. - Problem is an acute exacerbation. - Symptoms have improved. - Notes: CONTINUE WITH ANTIBIOTICS AND STEROIDS PREVIOUSLY PRESCRIBED. RETURN TO THE ER IF SYMPTOMS WORSEN. Historical: - Allergies: SULFA (SULFONAMIDES); - Home Meds: 1. Asmanex HFA 200 mcg/actuation inhalation HFAA 2 puffs 2 times per day 2. Breo Ellipta 200-25 mcg/dose inhalation dsdv 1 puff once daily 3. Striverdi Respimat 2.5 mcg/actuation inhalation mist 2 puffs once daily 4. Ventolin Rotahaler/Rotacaps 200 mcg Inhl CpDv every 6 hours 5. Augmentin 875-125 mg Oral tab every 12 hours 6. Prednisone Oral - PMHx: COPD; - PSHx: none; - Social history: Smoking status: Patient uses tobacco products, heavy tobacco smoker. No barriers to communication noted, The patient speaks fluent [place], Speaks appropriately for age. - Family history: Not pertinent. - : The pt / caregiver states he / she is not on anticoagulants. Home medication list is obtained from the patient. - Exposure Risk Screening:: None identified. Vital Signs: 10/21 20:20 BP 104 / 72; Pulse 79; Resp 18 S; Temp 98.8(O); Pulse Ox 100% on R/A; Weight 44 kg / 97 gr2 lbs (R); Height 5 ft. 6 in. (167.64 cm) (R); Pain 3/10; 23:41 BP 116 / 56 LA Sitting (auto/reg); Pulse 70 MON; Resp 18 S; Temp 99.6(TE); Pulse Ox 96% cln on R/A; Pain 4/10; 20:20 Body Mass Index 15.66 (44.00 kg, 167.64 cm) gr2 MDM: 20:29 ECG WITH READING ER PHYS+CARDIAG ordered. EDMS 20:44 -Blood Culture (Adults Only), peripheral from different site, or from device/port/PICC mm11 etc. if present ordered. 20:44 Bods Developer/Pulse Ox/q 15 min VS ordered. mm11 20:44 IV Saline Lock ordered. mm11 20:44 Rhythm Strip to chart ordered. mm11 20:44 Albuterol-Ipratropium 3 ml Inhalation once ordered. mm11 20:44 Call Respiratory ordered. mm11 20:45 -Blood Culture Ordered. EDMS 20:45 Basic Metabolic Profile Ordered. EDMS 20:45 CBC with Diff Ordered. EDMS 20:45 Venous Blood Gas (large pea green tube on ice) Ordered. EDMS 20:46 Chest, 2 View (pa\E\lat) Ordered. EDMS 20:49 Call Respiratory complete. mdr 20:53 -Blood Culture (Adults Only), peripheral from different site, or from device/port/PICC mdr etc. if present complete. 20:54 BLOOD CULTURES Ordered. EDMS 21:53 Basic Metabolic Profile Reviewed. mm11 21:53 CBC with Diff Reviewed. mm11 21:53 Venous Blood Gas (large pea green tube on ice) Reviewed. mm11 21:53 NS 0.9% 1000 ml IV at bolus once ordered. mm11 21:55 -Influenza A&B Rapid Antigen - Nose Ordered. EDMS 23:13 -Influenza A&B Rapid Antigen - Nose Reviewed. mm11 23:42 Financial registration complete. hs2 10/22 01:15 [facility] Payment Agreement was scanned into Movetis and attached to record. hs2 11:22 T-Sheet-- Draft Copy was scanned into Movetis and attached to record. gb 11:22 ECG/EKG was scanned into Movetis and attached to record. gb 11:23 Trend VS was scanned into Movet[employer] and attached to record. gb Administered Medications: 10/21 20:56 Drug: Albuterol-Ipratropium 3 ml [ipratropium-albuterol 0.5 mg-3 mg(2.5 mg base)/3 mL rs5 nebulization soln (3 mL)] Route: Inhalation; 21:59 Drug: NS 0.9% 1000 ml [sodium chloride 0.9 % intravenous solution] Route: IV; Rate: js15 bolus; Site: right antecubital; 23:42 Follow up: IV Status: Completed infusion; IV Intake: 1000ml js15 Signatures: Dispatcher MedHost EDNavneet Dominguez, SUGAR RN cz Naila Peoples, Reg Reg gb Peter Eden, DO mm11 Manuela Rader RN RN js15 Júnior Sanders, SCAFFOLDER SCAFFOLDER mdr Marcy Johnston, Reg Reg hs2 Ignacio Coates RT rs5 The chart was reviewed and I authenticate all verbal orders and agree with the evaluation and treatment provided.Attachments: 10/22 01:15 [facility] Payment Agreement hs2 11:22 T-Sheet-- Draft Copy gb 11:22 ECG/EKG gb Chart Complete MTDD
== END 2016-10-21 23:46 | disposition home or self-care (01) ==
LOC: M ED 20:17
DX: J44.9 Chronic obstructive pulmonary disease, unspecified (principal); F17.200 Nicotine dependence, unspecified, uncomplicated; Z79.51 Long term (current) use of inhaled steroids; Z79.899 Other long term (current) drug therapy; Z88.2 Allergy status to sulfonamides

== ENCOUNTER 2016-12-20 10:18 | Emergency (ER) | payer OTHER ==
[~2016-12-20] VITALS: Ht 167.6 cm; Wt 43.5 kg
[2016-12-20] MEDS ORDERED: COMBAER6 (10:43)
[2016-12-20] MEDS ORDERED: PRED50TA PO (10:43)
[2016-12-20] MEDS ORDERED: ASMA1AER3 (10:43)
[2016-12-20] MEDS ORDERED: ALBU83IN (10:43)
[2016-12-20] MEDS ORDERED: INCR1INH (10:43)
[2016-12-20] MEDS ORDERED: ACETAMINOPHEN 325 MG TAB PO ONE (11:30)
[2016-12-20] MEDS ORDERED: diphenhydrAMINE INJ 50MG/ML VIAL (J1200) IV ONE (11:30)
[2016-12-20] MEDS ORDERED: METOCLOPRAMIDE INJ 10MG/2ML VIAL (J2765) IV ONE (11:30)
[2016-12-20 11:48] LABS: BASO % 0.3 % (0.0-1.0); EOS # 0.1 K/mm3 (0.0-0.50); EOS % 0.7 % (0.0-3.0); LARGE UNSTAINED CELL # 0.1 K/mm3 (0.0-0.4); LARGE UNSTAINED CELL % 0.7 % (0.0-4.0); LYMPH # 2.8 K/mm3 (1.5-4.5); LYMPH % 18.3 % (24.0-44.0); MEAN CORPUSCULAR HEMOGLOBIN 31.2 pg (27.0-33.0); MEAN CORPUSCULAR HGB CONC 33.6 g/dl (32.0-36.5); MEAN CORPUSCULAR VOLUME 92.7 fl (80.0-96.0); MONO # 0.6 K/mm3 (0.0-0.8); MONO % 3.8 % (0.0-5.0); NEUTROPHILS # 11.2 K/mm3 (1.8-7.7); NEUTROPHILS % 76.2 % (36.0-66.0); PLATELET COUNT, AUTOMATED 227 k/mm3 (150-450); WHITE BLOOD COUNT 14.7 K/mm3 (4.0-10.0)
[2016-12-20 11:58] LABS: ANION GAP 9 MEQ/L (8-16); BLOOD UREA NITROGEN 8 MG/DL (7-18); CARBON DIOXIDE LEVEL 27 MEQ/L (21-32); CHLORIDE LEVEL 105 MEQ/L (98-107); CREATININE FOR GFR 0.68 MG/DL (0.55-1.02); GLOMERULAR FILTRATION RATE > 60.0 (>58); GLUCOSE, FASTING 95 MG/DL (70-105); POTASSIUM SERUM 3.4 MEQ/L (3.5-5.1); SODIUM LEVEL 141 MEQ/L (136-145)
--- NOTE | 2016-12-20 12:02 | REP ---
CT Head without contrast HISTORY: Headache COMPARISON: None There is no intraparenchymal hemorrhage, acute infarct, mass or midline shift. The ventricular system is normal in appearance. The subarachnoid space in the posterior fossa is dilated consistent with minimal cerebellar volume loss. There is no extra cerebral collection. There is no fracture. The visualized sinuses are clear. IMPRESSION: Minimal cerebellar volume loss. Signed by Suraj Scott MD 12/20/2016 11:54 A
[2016-12-20 12:07] LABS: ERYTHROCYTE SEDIMENTATION RATE 3 mm/hr (0-20)
[2016-12-20 12:08] VITALS: BP 98/65
[2016-12-24 08:06] LABS: Lyme Disease IgG Ab 18 kDa Ban Absent (.); Lyme Disease IgG Ab 23 kDa Ban Absent (.); Lyme Disease IgG Ab 28 kDa Ban Absent (.); Lyme Disease IgG Ab 30 kDa Ban Absent (.); Lyme Disease IgG Ab 39 kDa Ban Absent (.); Lyme Disease IgG Ab 41 kDa Ban Absent (.); Lyme Disease IgG Ab 45 kDa Ban Absent (.); Lyme Disease IgG Ab 58 kDa Ban Absent (.); Lyme Disease IgG Ab 66 kDa Ban Absent (.); Lyme Disease IgG Ab 93 kDa Ban Absent (.); Lyme Disease IgG West Blot Int Negative (.); Lyme Disease IgG/IgM Antibodie 1.03 ISR (0.00-0.90); Lyme Disease IgM Ab 23 kDa Ban Present (.); Lyme Disease IgM Ab 39 kDa Ban Absent (.); Lyme Disease IgM Ab 41 kDa Ban Absent (.); Lyme Disease IgM Ab Quantitati <0.80 index (0.00-0.79); Lyme Disease IgM West Blot Int Negative (.)
== END 2016-12-20 12:19 | disposition home or self-care (01) ==
LOC: M ED 12:18
DX: G43.111 Migraine with aura, intractable, with status migrainosus (principal); R06.02 Shortness of breath; K58.9 Irritable bowel syndrome, unspecified; J44.9 Chronic obstructive pulmonary disease, unspecified; Z79.899 Other long term (current) drug therapy; Z88.2 Allergy status to sulfonamides
CPT/HCPCS: 36415; 70450; 80048; 85025; 85652; 86140; 86617; 96374; 96375; 99283; J1200; J2765

== ENCOUNTER → 2017-02-25 | Outpatient (CLI) | payer OTHER ==
[~2017-02-25] MED LIST: ALBU83IN; AMOX875T2; ASMA1AER3; COMBAER6; INCR1INH; LEVA750T PO; PRED20TA; PRED50TA PO
--- NOTE | 2017-02-25 09:24 | PFTRPT ---
Tech: Franck CAPELLAN RRT Age: 46 Sex: Female Race: Height: 66.00 Inches Weight: 97.00 Lbs BSA: 1.47 Diagnosis: J43.1 TECH NOTE: Test meets the ATS standards for acceptability and repeatability. IVC is less than 85% of VC. DLCO may be underestimated. The patient was given four puffs of albuterol for postbronchodilator. PULMONARY FUNCTION REPORT ORDERING PROVIDER: Jose Ramos DO DATE OF SERVICE: 02/25/17 SPIROMETRY: Pre and post bronchodilator study of excellent technical quality. Some mild difficulty with effort is noted. The forced vital capacity is normal. The FEV1 is out of proportion. The obstructive index is, therefore, reduced. FLOW VOLUME LOOP: The expiratory limb of the flow volume loop is consistent with some degree of flow rate limitation. Only borderline bronchodilator response is identified. Suboptimal effort hampers data acquisition. LUNG VOLUMES: The total lung capacity is mildly elevated. The residual volume does suggest air trapping. DIFFUSION CAPACITY: The diffusion capacity is severely reduced and does not correct for alveolar volume. HEMOGLOBIN: The hemoglobin is acceptable at 15.3. AIRWAY MECHANICS: Airways resistance and conductance are normal. IMPRESSION: Suspect at least degree of underlying obstructive ventilatory impairment with air trapping. Diffusion capacity impairment. No additional bronchodilator response. Please correlate clinically. MTDD
== END ==
LOC: M CARPUL 08:26
PROVIDERS: ATTEND Internal Medicine Pulmonary Disease
DX: J43.1 Panlobular emphysema (principal)

== ENCOUNTER 2017-02-26 18:23 | Emergency (ER) | payer OTHER ==
[~2017-02-26] VITALS: Ht 167.6 cm; Wt 45.8 kg
[~2017-02-26 18:23] MED LIST changes: -AMOX875T2; -LEVA750T PO; -PRED20TA
[2017-02-26] MEDS ORDERED: AMOX875T2 (18:31)
[2017-02-26] MEDS ORDERED: PRED20TA (18:31)
[2017-02-26] MEDS ORDERED: methylPREDNISolone INJ 125 MG/2 ML VIAL (J2930) IV ONE (20:15)
[2017-02-26 20:39] LABS: VENOUS BASE EXCESS 0.2 (-2.0-2.0); VENOUS O2 SATURATION 96.6 % (60.0-80.0); VENOUS PARTIAL PRESSURE CO2 33.1 mmHg (38.0-50.0); VENOUS PARTIAL PRESSURE O2 78.1 mmHg (30.0-50.0); VENOUS STANDARD HCO3 24.7 MEQ/L; VENOUS TOTAL CO2 24.2 MEQ/L (24.0-28.0)
[2017-02-26] MEDS: IPRATROPIUM 0.5MG/ALBUTEROL 2.5MG INH SOL UD 3ML (DUONEB)(J7620) NEB PRN ×2 (20:39→21:41)
[2017-02-26 20:40] VITALS: O2SAT 98
[2017-02-26 20:41] LABS: BASO % 0.1 % (0.0-1.0); EOS % 0.6 % (0.0-3.0); LARGE UNSTAINED CELL # 0.1 K/mm3 (0.0-0.4); LARGE UNSTAINED CELL % 0.6 % (0.0-4.0); LYMPH # 0.4 K/mm3 (1.5-4.5); LYMPH % 4.4 % (24.0-44.0); MEAN CORPUSCULAR HGB CONC 34.3 g/dl (32.0-36.5); MEAN CORPUSCULAR VOLUME 90.5 fl (80.0-96.0); MONO # 0.3 K/mm3 (0.0-0.8); MONO % 3.4 % (0.0-5.0); NEUTROPHILS # 6.9 K/mm3 (1.8-7.7); NEUTROPHILS % 90.8 % (36.0-66.0); PLATELET COUNT, AUTOMATED 229 k/mm3 (150-450); RED CELL DISTRIBUTION WIDTH 12.8 % (11.5-14.5); WHITE BLOOD COUNT 7.5 K/mm3 (4.0-10.0)
[2017-02-26 20:54] LABS: CONTROL LINE HCG INT CTR LINE PRESENT
[2017-02-26] MEDS ORDERED: KETOROLAC 30 MG/ML VIAL (J1885) IV ONE (21:15)
[2017-02-26 21:17] LABS: ANION GAP 7 MEQ/L (8-16); BLOOD UREA NITROGEN 8 MG/DL (7-18); CALCIUM LEVEL 9.4 MG/DL (8.5-10.1); CARBON DIOXIDE LEVEL 24 MEQ/L (21-32); CHLORIDE LEVEL 109 MEQ/L (98-107); CREATININE FOR GFR 0.69 MG/DL (0.55-1.02); GLOMERULAR FILTRATION RATE > 60.0 (>58); GLUCOSE, FASTING 116 MG/DL (70-105); POTASSIUM SERUM 3.7 MEQ/L (3.5-5.1); SODIUM LEVEL 140 MEQ/L (136-145)
[2017-02-26] MEDS ORDERED: LEVA750T PO (22:28)
[2017-02-26] MEDS ORDERED: LevoFLOXacin 750 MG TABLET PO ONE (22:30)
[2017-02-26 22:54] VITALS: BP 125/62
--- NOTE | 2017-02-27 02:21 | REP ---
Clinical: Dyspnea and cough. Technique: PA and lateral. Comparison: 09/17/2016. Findings: Diffuse chronic coarsened and increased interstitial markings are nonspecific. Bronchitis and chronic reactive airway disease are within differential diagnosis. No focal consolidation, effusion, or pneumothorax. Mediastinum and cardiac silhouette are normal. Skeletal structures are intact. Impression: 1. Diffuse coarsened and increased interstitial markings similar to prior examination. Differential diagnosis includes, but not limited to bronchitis and chronic reactive airway disease. 2. If the patient remains symptomatic consider chest CT for further investigation. Signed by Juan Antonio Harvey MD 02/27/2017 02:14 A
--- NOTE | 2017-02-28 12:16 | ECGEPIP ---
Stationary ECG Study [facility] - ED Test Date: 2017-02-26 Pat Name: YENI REYEZ Department: Room: - Gender: F Big Data Lead: mirta : 1970 Requested By: HAYDEN Landon Order Number: [id number] Reading MD: Nancy Perea Measurements Intervals [place] Rate: 71 P: DE: 0 QRS: 51 QRSD: 89 T: 71 QT: 375 QTc: 410 Interpretive Statements SINUS RHYTM PAC POSSIBLE RIGHT VENTRICULAR CONDUCTION DELAY PREEXCITATION NSTTW ABNORMALITY Electronically Signed On 02-28-2017 12:16:37 EDT by Nancy Perea
== END 2017-02-26 22:55 | disposition home or self-care (01) ==
LOC: M ED 20:13
DX: J44.0 Chronic obstructive pulmonary disease with (acute) lower respiratory infection (principal); F17.200 Nicotine dependence, unspecified, uncomplicated; R94.31 Abnormal electrocardiogram [ECG] [EKG]; Z79.899 Other long term (current) drug therapy; Z88.2 Allergy status to sulfonamides

== ENCOUNTER 2017-04-15 10:11 | Emergency (ER) | payer OTHER ==
[~2017-04-15] VITALS: Ht 167.6 cm; Wt 45.2 kg
[~2017-04-15 10:11] MED LIST changes: +AMOX875T2; +LEVA750T7 PO; +PRED20TA
[2017-04-15] MEDS ORDERED: STRI1AER2 INH (10:27)
[2017-04-15] MEDS ORDERED: predniSONE 20 MG TAB PO ONE (11:15)
[2017-04-15] MEDS: IPRATROPIUM 0.5MG/ALBUTEROL 2.5MG INH SOL UD 3ML (DUONEB)(J7620) NEB SCH ×2 (11:49→12:11)
--- NOTE | 2017-04-15 12:25 | REP ---
PA and lateral chest: Comparison is 02/26/2017. Lung munoz are hyperinflated, as previously. There is mild interstitial coarsening, unchanged. Findings are compatible with COPD but requires clinical confirmation. There are no acute infiltrates or effusions. There are no masses. Cardiac size is normal. The donte, mediastinum, and bony thorax are unremarkable. Impression: There are no acute cardiopulmonary findings. No change from the comparison study. Signed by Sloan Maurice MD 04/15/2017 12:17 P
[2017-04-15] MEDS ORDERED: AUGMENTIN 875 MG TAB PO ONE (13:00)
[2017-04-15] MEDS ORDERED: CLAR1TAB2 PO (13:01)
[2017-04-15] MEDS ORDERED: MUCI600T37 PO (13:01)
[2017-04-15] MEDS ORDERED: PRED20TA PO (13:01)
[2017-04-15] MEDS ORDERED: AUGM875T28 PO (13:01)
[2017-04-15 13:11] VITALS: BP 112/65
--- NOTE | 2017-04-17 19:06 | ECGEPIP ---
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 RBBB SIMILAR TO 02/26/17 Electronically Signed On 04-17-2017 19:06:17 EDT by Suresh Smith
== END 2017-04-15 13:49 | disposition home or self-care (01) ==
LOC: M ED 10:11
DX: J44.0 Chronic obstructive pulmonary disease with (acute) lower respiratory infection (principal); K58.9 Irritable bowel syndrome, unspecified; F41.9 Anxiety disorder, unspecified; F17.200 Nicotine dependence, unspecified, uncomplicated; Z79.899 Other long term (current) drug therapy; Z88.2 Allergy status to sulfonamides

== ENCOUNTER 2017-05-01 14:14 | Emergency (ER) | payer OTHER ==
[~2017-05-01] VITALS: Ht 167.6 cm; Wt 44.1 kg
[~2017-05-01 14:14] MED LIST changes: +AUGM875T28 PO; +CLAR1TAB2 PO; +MUCI600T37 PO; +PRED20TA PO; +STRI1AER2 INH
[2017-05-01] MEDS ORDERED: ALBU17IN (14:36)
[2017-05-01] MEDS ORDERED: NAPR250T4 PO (16:02)
[2017-05-01 16:22] VITALS: BP 119/55
--- NOTE | 2017-05-01 17:13 | REP ---
TWO VIEW CHEST: Two views of the chest are performed and compared to prior study of 04/15/2017. There is mild biapical pleural thickening and scattered interstitial fibrotic scarring which is stable. No pneumothorax or acute infiltrate is seen. The heart is normal in size. Mediastinal silhouette is unchanged. Visualized osseous structures appear intact. IMPRESSION: Chronic changes are stable without evidence of acute pulmonary disease. Signed by Sloan Gutiérrez MD 05/02/2017 05:03 P
--- NOTE | 2017-05-01 21:00 | ECGEPIP ---
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
== END 2017-05-01 16:23 | disposition home or self-care (01) ==
LOC: M ED 14:14
DX: R07.89 Other chest pain (principal); J43.9 Emphysema, unspecified; Z87.891 Personal history of nicotine dependence; Z79.899 Other long term (current) drug therapy; Z88.2 Allergy status to sulfonamides

== ENCOUNTER 2017-10-14 10:02 | Emergency (ER) | payer OTHER ==
[2017-10-14] MEDS: predniSONE 20 MG TAB PO (10:44)
[2017-10-14] MEDS: IPRATROPIUM 0.5MG/ALBUTEROL 2.5MG INH SOL UD 3ML (DUONEB)(J7620) NEB ×2 (10:53→10:58)
[2017-10-14] MEDS: AUGMENTIN 875 MG TAB PO (11:28)
== END 2017-10-14 11:34 | disposition home or self-care (01) ==
LOC: M ED 10:02
DX: J44.1 Chronic obstructive pulmonary disease with (acute) exacerbation (principal); J20.9 Acute bronchitis, unspecified; F17.200 Nicotine dependence, unspecified, uncomplicated
CPT/HCPCS: 71046

== ENCOUNTER 2017-12-11 12:54 | Emergency (ER) | payer OTHER | END 2017-12-11 14:27 | disposition left against medical advice (07) | LOC: M ED 12:54 | DX: Z53.21 Procedure and treatment not carried out due to patient leaving prior to being seen by health care provider (principal) ==

== ENCOUNTER 2018-06-26 11:10 | Emergency (ER) | payer OTHER ==
[2018-06-26 12:20] LABS: BASO % 0.7 % (0.0-1.0); EOS % 0.5 % (0.0-3.0); HEMATOCRIT 42.8 % (36.0-47.0); HEMOGLOBIN 14.4 g/dl (12.0-15.5); IMMATURE GRANULOCYTE % 0.2 % (0-3.0); LYMPH # 1.8 10^3/uL (1.5-4.5); LYMPH % 29.8 % (24.0-44.0); MEAN CORPUSCULAR HEMOGLOBIN 30.8 pg (27.0-33.0); MEAN CORPUSCULAR HGB CONC 33.6 g/dl (32.0-36.5); MEAN CORPUSCULAR VOLUME 91.5 fl (80.0-96.0); MONO # 0.3 10^3/uL (0.0-0.8); MONO % 5.4 % (0.0-5.0); NEUTROPHILS # 3.9 10^3/uL (1.8-7.7); NEUTROPHILS % 63.4 % (36.0-66.0); PLATELET COUNT, AUTOMATED 222 10^3/uL (150-450); RED BLOOD COUNT 4.68 10^6/uL (4.00-5.40); RED CELL DISTRIBUTION WIDTH 12.9 % (11.5-14.5); WHITE BLOOD COUNT 6.2 10^3/uL (4.0-10.0)
[2018-06-26 12:42] LABS: ANION GAP 7 MEQ/L (8-16); BLOOD UREA NITROGEN 9 MG/DL (7-18); CALCIUM LEVEL 8.9 MG/DL (8.5-10.1); CARBON DIOXIDE LEVEL 26 MEQ/L (21-32); CHLORIDE LEVEL 106 MEQ/L (98-107); CK-MB VALUE MASS < 1.0 NG/ML (<3.6); CPK CREATINE PHOSPHOKINASE 52 U/L (26-192); CREATININE FOR GFR 0.69 MG/DL (0.55-1.30); GLOMERULAR FILTRATION RATE > 60.0 (>58); GLUCOSE, FASTING 92 MG/DL (70-100); MB/CK RELATIVE INDEX 1.92 (< OR =4); POTASSIUM SERUM 3.8 MEQ/L (3.5-5.1); SODIUM LEVEL 139 MEQ/L (136-145); TROPONIN I < 0.02 NG/ML (< 0.10)
== END 2018-06-26 13:28 | disposition home or self-care (01) ==
LOC: M ED 11:10
DX: R07.89 Other chest pain (principal)
CPT/HCPCS: 71045

== ENCOUNTER → 2018-09-25 | Outpatient (CLI) | payer OTHER ==
[~2018-09-25] MED LIST changes: +ALBU17IN; +NAPR250T4 PO
--- NOTE | 2018-09-25 18:11 | REP ---
Chest two views HISTORY: Acute bronchitis Comparison: 06/26/2018 The lungs are hyperinflated. A minimal increase in interstitial markings is present in the lungs consistent with chronic interstitial fibrosis. The heart is normal in size. The pulmonary vasculature is normal in appearance. The bony structure is intact. IMPRESSION: Chronic interstitial fibrosis. Electronically Signed by Suraj Scott MD 09/25/2018 06:02 P
== END ==
LOC: M ADAMS 17:18
PROVIDERS: ATTEND Physician Assistant Medical
DX: J20.9 Acute bronchitis, unspecified (principal)

== ENCOUNTER → 2018-12-16 | Outpatient (REF) | payer OTHER ==
[2018-12-16 15:05] LABS: INFLUENZA A AMPLIFICATION NEGATIVE (NEGATIVE); INFLUENZA B AMPLIFICATION NEGATIVE (NEGATIVE)
== END ==
LOC: M LAB REF 14:17
PROVIDERS: ATTEND Physician Assistant
DX: J11.1 Influenza due to unidentified influenza virus with other respiratory manifestations (principal)

== ENCOUNTER 2019-06-14 08:57 | Emergency (ER) | payer OTHER, SELFPAY ==
[~2019-06-14] VITALS: Ht 167.6 cm; Wt 42.8 kg
[2019-06-14 11:24] LABS: INFLUENZA A AMPLIFICATION NEGATIVE (NEGATIVE); INFLUENZA B AMPLIFICATION NEGATIVE (NEGATIVE)
[2019-06-14 12:05] LABS: HEMATOCRIT 42.8 % (36.0-47.0); HEMOGLOBIN 14.6 g/dl (12.0-15.5); MEAN CORPUSCULAR HEMOGLOBIN 30.5 pg (27.0-33.0); MEAN CORPUSCULAR HGB CONC 34.1 g/dl (32.0-36.5); MEAN CORPUSCULAR VOLUME 89.5 fl (80.0-96.0); PLATELET COUNT, AUTOMATED 203 10^3/uL (150-450); RED BLOOD COUNT 4.78 10^6/uL (4.00-5.40); WHITE BLOOD COUNT 8.3 10^3/uL (4.0-10.0)
--- NOTE | 2019-06-14 12:11 | REP ---
CHEST, TWO VIEWS: Two views of the chest are performed. There is hyperinflation with interstitial prominence, stable. No acute infiltrate is seen. The heart is normal in size. Mediastinal silhouette is unchanged. Visualized osseous structures appear intact. IMPRESSION: No evidence of acute infiltrate. Electronically Signed by Sloan Gutiérrez MD 06/15/2019 09:54 A
[2019-06-14 12:34] LABS: BLOOD UREA NITROGEN 9 MG/DL (7-18); CALCIUM LEVEL 9.2 MG/DL (8.5-10.1); CARBON DIOXIDE LEVEL 27 MEQ/L (21-32); CHLORIDE LEVEL 108 MEQ/L (98-107); CREATININE FOR GFR 0.67 MG/DL (0.55-1.30); GLOMERULAR FILTRATION RATE > 60.0 (>58); GLUCOSE, FASTING 87 MG/DL (70-100); POTASSIUM SERUM 3.7 MEQ/L (3.5-5.1); SODIUM LEVEL 143 MEQ/L (136-145)
[2019-06-14] MEDS ORDERED: TESS100C PO (12:37)
[2019-06-14] MEDS ORDERED: PRED20TA PO (12:37)
[2019-06-14 12:46] VITALS: BP 111/71
== END 2019-06-14 13:06 | disposition home or self-care (01) ==
LOC: M ED 08:57
DX: J06.9 Acute upper respiratory infection, unspecified (principal); R07.81 Pleurodynia; Z88.2 Allergy status to sulfonamides

== ENCOUNTER 2021-05-08 14:18 | Emergency (ER) | payer OTHER, SELFPAY ==
[~2021-05-08] VITALS: Ht 167.6 cm; Wt 40.0 kg
[2021-05-08 14:18] VITALS: BP 99/77
[~2021-05-08 14:18] MED LIST changes: +NAPR-849 PO; -NAPR250T4 PO; +TESS100C PO
[2021-05-09] MEDS ORDERED: DEXA6TAB PO (22:04)
== END 2021-05-08 16:30 | disposition left against medical advice (07) ==
LOC: M ED 14:18
DX: Z53.21 Procedure and treatment not carried out due to patient leaving prior to being seen by health care provider (principal)

== ENCOUNTER 2021-05-09 19:12 | Emergency (ER) | payer OTHER ==
[~2021-05-09] VITALS: Ht 167.6 cm; Wt 39.5 kg
--- NOTE | 2021-05-09 20:57 | REPVR ---
PROCEDURE INFORMATION: Exam: XR Chest Exam date and time: 05/09/2021 8:28 PM Age: 51 years old Clinical indication: Other: Cough covid; Additional info: Cough, covid + TECHNIQUE: Imaging protocol: XR of the chest. Views: 1 view. COMPARISON: CR Chest, 2 view PA, Lat 06/14/2019 11:24 AM FINDINGS: Lungs: There is hyperinflation. Thin linear opacities at the lung apices; No focal infiltrates. Pleural spaces: Unremarkable. No pleural effusion. No pneumothorax. Heart/Mediastinum: Unremarkable. No cardiomegaly. Bones/joints: Unremarkable. IMPRESSION: Hyperinflation with scarring at the lung apices. No infiltrates seen. Electronically signed by: Nadira Ashley On 05/09/2021 20:56:58 PM
[2021-05-09] MEDS ORDERED: DEXA6TAB PO (22:04)
[2021-05-09 22:45] VITALS: BP 109/74
== END 2021-05-09 22:48 | disposition home or self-care (01) ==
LOC: M ED 19:12
DX: U07.1 COVID-19 (principal); J44.9 Chronic obstructive pulmonary disease, unspecified; Z88.1 Allergy status to other antibiotic agents; Z88.2 Allergy status to sulfonamides

== ENCOUNTER → 2021-06-13 | Outpatient (CLI) | payer OTHER ==
[~2021-06-13] MED LIST changes: +DEXA6TAB PO
--- NOTE | 2021-06-13 15:29 | REP ---
INDICATION: EMPHYSEMA. COMPARISON: None. TECHNIQUE: Imaging protocol: Computed tomography of the chest without IV contrast. Contiguous 3 mm thick axial projection images were obtained through the chest. 2D sagittal and coronal reconstructions were performed. Radiation optimization: All CT scans at this facility use at least one of these dose optimization techniques: automated exposure control; mA and/or kV adjustment per patient size (includes targeted exams where dose is matched to clinical indication); or iterative reconstruction. FINDINGS: Lower neck: The thyroid gland is normal. There is no supraclavicular lymphadenopathy. Mediastinum: No abnormal masses or lymphadenopathy. Heart/thoracic aorta/pulmonary arterial tree: The heart size is normal. There is no pericardial effusion. There is minimal calcific vascular disease of the thoracic aorta and coronary arteries. There is enlargement of the main pulmonary arterial segments bilaterally consistent with pulmonary arterial hypertension. Upper abdomen: There is minimal calcific vascular disease of the abdominal aorta. Thoracic esophagus: Normal. Chest wall and axilla: There is a paucity of subcutaneous fat. The breasts and soft tissues of the chest wall are otherwise unremarkable. There is no axillary lymphadenopathy. There are no bony abnormalities of the chest. Lung parenchyma: There is pleural-parenchymal scarring in both lung apices. There are apical pleural blebs bilaterally. There is moderate upper lobe predominant centrilobular emphysema. There are no pulmonary nodules or masses. There are no pleural effusions. IMPRESSION: 1. There is pleural-parenchymal scarring in both lung apices. 2. Moderate emphysema. 3. No pulmonary nodules or masses. 4. Pulmonary arterial hypertension. 5. Minimal calcific vascular disease of the thoracoabdominal aorta and coronary arteries. 6. Paucity of subcutaneous and mediastinal fat suggesting cachexia. No significant change. <Electronically signed by Landon Turner > 06/13/21 [id number]
== END ==
LOC: M RAD 14:59
PROVIDERS: ATTEND Nurse Practitioner Family
DX: J43.1 Panlobular emphysema (principal); R91.8 Other nonspecific abnormal finding of lung field; I27.20 Pulmonary hypertension, unspecified

== ENCOUNTER → 2021-12-24 | Outpatient (CLI) | payer OTHER | LOC: M CARPUL 14:17 | PROVIDERS: ATTEND Nurse Practitioner Family | DX: I27.20 Pulmonary hypertension, unspecified (principal) ==

== ENCOUNTER → 2021-12-25 | Outpatient (CLI) | payer OTHER | LOC: M PLAIMG 12:14 | PROVIDERS: ATTEND Nurse Practitioner Family | DX: J43.1 Panlobular emphysema (principal) ==

== ENCOUNTER 2023-04-12 21:26 | Emergency (ER) | payer OTHER ==
[~2023-04-12] VITALS: Ht 170.2 cm; Wt 39.5 kg
[~2023-04-12 21:26] MED LIST changes: +ALBU2.5V10; -ALBU83IN; -ASMA1AER3; +MOME13HF5
[2023-04-12] MEDS ORDERED: NS 1,000 ML IV ONE (21:50)
[2023-04-12] MEDS ORDERED: ACETAMINOPHEN TAB 650MG DOSE (2X325MG) PO ONE (21:50)
[2023-04-12] MEDS ORDERED: IPRATROPIUM 0.5MG/ALBUTEROL 2.5MG INH SOL UD 3ML (DUONEB) NEB ONE (21:55)
[2023-04-12 22:11] LABS: BASO % 0.2 % (0.0-1.0); EOS % 0.2 % (0.0-3.0); HEMATOCRIT 39.8 % (36.0-47.0); HEMOGLOBIN 13.9 g/dl (12.0-15.5); LYMPH # 1.4 10^3/uL (1.5-5.0); LYMPH % 10.6 % (24.0-44.0); MEAN CORPUSCULAR HEMOGLOBIN 31.4 pg (27.0-33.0); MEAN CORPUSCULAR HGB CONC 34.9 g/dl (32.0-36.5); MEAN CORPUSCULAR VOLUME 89.8 fl (80.0-96.0); MONO # 0.2 10^3/uL (0.0-0.8); MONO % 1.6 % (2.0-8.0); NEUTROPHILS # 11.1 10^3/uL (1.5-8.5); PLATELET COUNT, AUTOMATED 214 10^3/uL (150-450); RED BLOOD COUNT 4.43 10^6/uL (4.00-5.40); WHITE BLOOD COUNT 12.7 10^3/uL (4.0-10.0)
[2023-04-12 22:44] LABS: LIPASE 20 U/L (12-53)
[2023-04-12 22:46] LABS: ALBUMIN 3.2 G/DL (3.2-5.2); ALKALINE PHOSPHATASE 76 U/L (46-116); ALT/SGPT 10 U/L (7.0-40); AST/SGOT 9 U/L (<34); BILIRUBIN,TOTAL 1.1 MG/DL (0.3-1.2); BLOOD UREA NITROGEN 11 MG/DL (9-23); CALCIUM LEVEL 8.6 MG/DL (8.5-10.1); CARBON DIOXIDE LEVEL 22 MMOL/L (20-31); CHLORIDE LEVEL 104 MMOL/L (98-107); CREATININE FOR GFR 0.61 MG/DL (0.55-1.30); GLOMERULAR FILTRATION RATE > 60.0 (>51); GLUCOSE, FASTING 110 MG/DL (60-100); POTASSIUM SERUM 3.4 MMOL/L (3.5-5.1); SODIUM LEVEL 132 MMOL/L (136-145); TOTAL PROTEIN 5.6 G/DL (5.7-8.2)
[2023-04-12] MEDS ORDERED: cefTRIAXone SOD 1 GM in D5W MINI-BAG PLUS 50 ML IV ONE (23:45)
[2023-04-12] MEDS ORDERED: CEFP200T PO (23:50)
[2023-04-13 00:47] VITALS: BP 108/59; TEMP 98.5; O2SAT 95
[2023-04-13] MEDS ORDERED: CIPR500T39 PO (09:26)
== END 2023-04-13 00:45 | disposition home or self-care (01) ==
LOC: M ED 21:26
DX: N30.01 Acute cystitis with hematuria (principal); N10 Acute pyelonephritis; F41.9 Anxiety disorder, unspecified; Z79.52 Long term (current) use of systemic steroids; Z79.899 Other long term (current) drug therapy
CPT/HCPCS: 71045; 76775; 80053; 81001; 83605; 83690; 85025; 87040; 87088; 87186; 87486; 87581; 87633; 87798; 94640; 99284; J0696

== ENCOUNTER 2024-06-21 17:01 | Emergency (ER) | payer SELFPAY ==
[~2024-06-21] VITALS: Ht 170.2 cm; Wt 37.8 kg
[~2024-06-21 17:01] MED LIST changes: +CEFP200T PO; +CIPR500T39 PO
[2024-06-21 18:03] LABS: BASO # 0.1 10^3/uL (0.0-0.2); BASO % 0.6 % (0.0-1.0); EOS # 0.1 10^3/uL (0.0-0.5); EOS % 1.1 % (0.0-3.0); HEMATOCRIT 43.3 % (36.0-47.0); HEMOGLOBIN 14.7 g/dl (12.0-15.5); LYMPH % 35.4 % (24.0-44.0); MEAN CORPUSCULAR HEMOGLOBIN 30.8 pg (27.0-33.0); MEAN CORPUSCULAR HGB CONC 33.9 g/dl (32.0-36.5); MEAN CORPUSCULAR VOLUME 90.8 fl (80.0-96.0); MONO # 0.4 10^3/uL (0.0-0.8); MONO % 4.7 % (2.0-8.0); NEUTROPHILS # 4.9 10^3/uL (1.5-8.5); NEUTROPHILS % 57.8 % (36.0-66.0); PLATELET COUNT, AUTOMATED 237 10^3/uL (150-450); RED BLOOD COUNT 4.77 10^6/uL (4.00-5.40); WHITE BLOOD COUNT 8.5 10^3/uL (4.0-10.0)
[2024-06-21 18:15] LABS: INR 1.13; PROTHROMBIN TIME 14.2 SECONDS (12.5-14.5)
[2024-06-21 18:24] LABS: CK-MB VALUE MASS < 1.0 NG/ML (<3.6)
[2024-06-21 18:26] LABS: ALBUMIN 3.9 G/DL (3.2-5.2); ALKALINE PHOSPHATASE 81 U/L (46-116); ALT/SGPT 12 U/L (7.0-40); AST/SGOT 13 U/L (<34); BILIRUBIN,DIRECT 0.2 MG/DL (<0.4); BILIRUBIN,TOTAL 0.7 MG/DL (0.3-1.2); BLOOD UREA NITROGEN 6 MG/DL (9-23); CALCIUM LEVEL 9.9 MG/DL (8.5-10.1); CARBON DIOXIDE LEVEL 26 MMOL/L (20-31); CHLORIDE LEVEL 108 MMOL/L (98-107); CREATININE FOR GFR 0.61 MG/DL (0.55-1.30); GLOMERULAR FILTRATION RATE > 60.0 (>51); GLUCOSE, FASTING 94 MG/DL (60-100); POTASSIUM SERUM 3.8 MMOL/L (3.5-5.1); SODIUM LEVEL 138 MMOL/L (136-145); TOTAL PROTEIN 6.9 G/DL (5.7-8.2)
[2024-06-21 18:40] LABS: CPK CREATINE PHOSPHOKINASE 72 U/L (34-145); MB/CK RELATIVE INDEX 1.38 (< OR =4)
[2024-06-21] MEDS: predniSONE 20 MG TAB PO ONE (21:47)
[2024-06-21] MEDS: IPRATROPIUM 0.5MG/ALBUTEROL 2.5MG INH SOL UD 3ML (DUONEB) NEB ONE ×2 (21:48)
[2024-06-21 22:19] VITALS: BP 108/64; TEMP 97.8; O2SAT 97
== END 2024-06-21 23:13 | disposition home or self-care (01) ==
LOC: M ED 17:01
DX: J44.1 Chronic obstructive pulmonary disease with (acute) exacerbation (principal); J45.909 Unspecified asthma, uncomplicated; I45.10 Unspecified right bundle-branch block; Z88.2 Allergy status to sulfonamides; Z79.51 Long term (current) use of inhaled steroids; Z79.2 Long term (current) use of antibiotics; Z79.899 Other long term (current) drug therapy
CPT/HCPCS: 36415; 71046; 80048; 80076; 82550; 82553; 84484; 85025; 85610; 87486; 87581; 87633; 87798; 93005; 99284; J7512

== ENCOUNTER 2024-07-27 12:07 | Emergency (ER) | payer SELFPAY ==
[~2024-07-27] VITALS: Ht 167.6 cm; Wt 37.7 kg
[2024-07-27 13:53] LABS: RSV AMPLIFICATION NEGATIVE (NEGATIVE)
[2024-07-27] MEDS: IPRATROPIUM 0.5MG/ALBUTEROL 2.5MG INH SOL UD 3ML (DUONEB) NEB ONE (16:24)
[2024-07-27 17:00] VITALS: BP 104/56
[2024-07-27 17:15] VITALS: O2SAT 92
[2024-07-27] MEDS ORDERED: ZITHTAB PO (17:17)
[2024-07-27 17:20] VITALS: TEMP 97.8
== END 2024-07-27 17:25 | disposition home or self-care (01) ==
LOC: M ED 14:18
DX: J44.9 Chronic obstructive pulmonary disease, unspecified (principal); I45.10 Unspecified right bundle-branch block; K58.9 Irritable bowel syndrome, unspecified; F17.200 Nicotine dependence, unspecified, uncomplicated; Z88.2 Allergy status to sulfonamides; Z79.52 Long term (current) use of systemic steroids; Z79.1 Long term (current) use of non-steroidal anti-inflammatories (NSAID)

== ENCOUNTER 2024-12-02 14:29 | Emergency (ER) | payer SELFPAY ==
[~2024-12-02] VITALS: Ht 167.6 cm; Wt 36.5 kg
[~2024-12-02 14:29] MED LIST changes: +ZITHTAB PO
[2024-12-02 15:09] LABS: VENOUS HCO3 25.5 MMOL/L (23.0-27.0); VENOUS O2 SATURATION 63.9 % (60.0-80.0); VENOUS PARTIAL PRESSURE CO2 48.9 mmHg (38.0-50.0); VENOUS PH 7.335 UNITS (7.330-7.430); VENOUS STANDARD HCO3 22.8 MMOL/L
[2024-12-02 15:13] LABS: BASO % 0.5 % (0.0-1.0); EOS # 0.1 10^3/uL (0.0-0.5); EOS % 1.2 % (0.0-3.0); HEMATOCRIT 44.2 % (36.0-47.0); LYMPH # 2.7 10^3/uL (1.5-5.0); MEAN CORPUSCULAR HEMOGLOBIN 30.8 pg (27.0-33.0); MEAN CORPUSCULAR HGB CONC 33.9 g/dl (32.0-36.5); MEAN CORPUSCULAR VOLUME 90.8 fl (80.0-96.0); MONO # 0.4 10^3/uL (0.0-0.8); MONO % 5.9 % (2.0-8.0); NEUTROPHILS # 3.2 10^3/uL (1.5-8.5); NEUTROPHILS % 50.1 % (36.0-66.0); PLATELET COUNT, AUTOMATED 259 10^3/uL (150-450); RED BLOOD COUNT 4.87 10^6/uL (4.00-5.40); WHITE BLOOD COUNT 6.5 10^3/uL (4.0-10.0)
[2024-12-02 15:25] LABS: INR 1.01; PROTHROMBIN TIME 13.6 SECONDS (12.5-14.5)
[2024-12-02 15:40] LABS: ALBUMIN 3.8 G/DL (3.2-5.2); ALKALINE PHOSPHATASE 66 U/L (35-104); ALT/SGPT 14 U/L (7.0-40); AST/SGOT 13 U/L (<34); BILIRUBIN,DIRECT 0.2 MG/DL (<0.4); BILIRUBIN,TOTAL 0.5 MG/DL (0.3-1.2); BLOOD UREA NITROGEN 9 MG/DL (9-23); CALCIUM LEVEL 9.2 MG/DL (8.5-10.1); CARBON DIOXIDE LEVEL 26 MMOL/L (20-31); CHLORIDE LEVEL 107 MMOL/L (98-107); CREATININE FOR GFR 0.55 MG/DL (0.55-1.30); GLOMERULAR FILTRATION RATE > 60.0 (>51); GLUCOSE, FASTING 115 MG/DL (60-100); POTASSIUM SERUM 3.4 MMOL/L (3.5-5.1); SODIUM LEVEL 140 MMOL/L (136-145); TOTAL PROTEIN 6.7 G/DL (5.7-8.2)
[2024-12-02] MEDS: methylPREDNISolone 125MG 2ML VIAL IV ONE (15:44)
[2024-12-02] MEDS ORDERED: ISOVUE-370 76% 100ML VIAL As Ordered ONE (15:45)
[2024-12-02] MEDS: KETOROLAC 30 MG/ML 1ML VIAL IV ONE (16:33)
[2024-12-02] MEDS: POTASSIUM CHLORIDE 10MEQ SR TABLET PO ONE (16:34)
[2024-12-02] MEDS: IPRATROPIUM 0.5MG/ALBUTEROL 2.5MG INH SOL UD 3ML (DUONEB) NEB PRN (16:35)
[2024-12-02 17:12] VITALS: O2SAT 91
[2024-12-02] MEDS ORDERED: PRED20TA PO (17:14)
[2024-12-02] MEDS ORDERED: ALBU2.5V10 NEB (17:14)
[2024-12-02] MEDS ORDERED: NEBU1EAC78 MC (17:15)
[2024-12-02 17:32] VITALS: BP 114/82; TEMP 99; O2SAT 95
== END 2024-12-02 17:44 | disposition home or self-care (01) ==
LOC: M ED 14:29
DX: J44.1 Chronic obstructive pulmonary disease with (acute) exacerbation (principal); I45.10 Unspecified right bundle-branch block; F41.9 Anxiety disorder, unspecified; K58.9 Irritable bowel syndrome, unspecified; F17.200 Nicotine dependence, unspecified, uncomplicated; J84.10 Pulmonary fibrosis, unspecified; Z88.2 Allergy status to sulfonamides; Z79.52 Long term (current) use of systemic steroids
CPT/HCPCS: 71045; 71275; 80048; 80076; 82803; 83605; 84484; 85025; 85610; 87040; 87486; 87581; 87633; 87798; 93005; 93041; 94640; 94760; 96374; 96375; 99285; J1885; J2919; Q9967

== ENCOUNTER → 2025-02-07 | Outpatient (CLI) | payer MEDICAID ==
[~2025-02-07] MED LIST changes: +ALBU2.5V10 NEB; +NEBU1EAC78 MC; -PRED50TA PO; +PRED50TA57 PO
[2025-02-07 12:00] LABS: BASO # 0.1 10^3/uL (0.0-0.2); EOS # 0.1 10^3/uL (0.0-0.5); EOS % 1.9 % (0.0-3.0); HEMOGLOBIN 15.3 g/dl (12.0-15.5); LYMPH # 2.3 10^3/uL (1.5-5.0); LYMPH % 39.3 % (24.0-44.0); MEAN CORPUSCULAR HEMOGLOBIN 30.5 pg (27.0-33.0); MEAN CORPUSCULAR HGB CONC 33.3 g/dl (32.0-36.5); MEAN CORPUSCULAR VOLUME 91.8 fl (80.0-96.0); MONO # 0.3 10^3/uL (0.0-0.8); MONO % 5.2 % (2.0-8.0); NEUTROPHILS # 3.1 10^3/uL (1.5-8.5); NEUTROPHILS % 52.6 % (36.0-66.0); PLATELET COUNT, AUTOMATED 256 10^3/uL (150-450); RED BLOOD COUNT 5.01 10^6/uL (4.00-5.40); WHITE BLOOD COUNT 5.8 10^3/uL (4.0-10.0)
[2025-02-07 12:23] LABS: HEMOGLOBIN A1c 5.2 % (4.0-6.0)
[2025-02-07 12:30] LABS: ALBUMIN 3.8 G/DL (3.2-5.2); ALKALINE PHOSPHATASE 70 U/L (35-104); ALT/SGPT 16 U/L (7.0-40); AST/SGOT 13 U/L (<34); BILIRUBIN,TOTAL 0.6 MG/DL (0.3-1.2); BLOOD UREA NITROGEN 11 MG/DL (9-23); CALCIUM LEVEL 9.8 MG/DL (8.5-10.1); CARBON DIOXIDE LEVEL 29 MMOL/L (20-31); CHLORIDE LEVEL 109 MMOL/L (98-107); CHOLESTEROL LEVEL 196 MG/DL (<200); CHOLESTEROL RISK RATIO 3.47 (<5); CREATININE FOR GFR 0.63 MG/DL (0.55-1.30); GLOMERULAR FILTRATION RATE > 90.0 (>51); GLUCOSE, FASTING 90 MG/DL (60-100); HDL CHOLESTEROL 56.4 MG/DL (>40); NON-HDL-C 139.6 MG/DL; POTASSIUM SERUM 4.4 MMOL/L (3.5-5.1); SODIUM LEVEL 141 MMOL/L (136-145); TOTAL PROTEIN 6.8 G/DL (5.7-8.2); TRIGLYCERIDES LEVEL 63 MG/DL (<150)
[2025-02-07 12:32] LABS: FREE T4 1.19 NG/DL (0.89-1.76); THYROID STIMULATING HORMONE 1.991 uIU/ML (0.55-4.78)
== END ==
LOC: M LAB 10:45
DX: Z00.8 Encounter for other general examination (principal)

== ENCOUNTER → 2025-04-12 | Outpatient (CLI) | payer OTHER | LOC: M PLAIMG 11:58 | PROVIDERS: ATTEND Internal Medicine Pulmonary Disease | DX: J44.9 Chronic obstructive pulmonary disease, unspecified (principal); J98.11 Atelectasis ==